=== PATIENT | male | born 2000 | race American Indian/Alaskan Native ===

== ENCOUNTER 2024-01-07 23:31 | Emergency (ER) | payer SELFPAY ==
[2024-01-07 23:32] VITALS: BP 146/97; PULSE 100; RESP 19; TEMP 36.6; O2SAT 100
--- NOTE | 2024-01-08 02:27 | PC.NURSE ---
Patient called again for vitals in triage area. No answer.
== END 2024-01-08 02:47 | disposition left against medical advice (07) ==
DX: H57.12 Ocular pain, left eye (principal)
CPT/HCPCS: 99199

== ENCOUNTER 2024-01-08 10:18 | Emergency (ER) | payer OTHER, SELFPAY ==
[2024-01-08 10:20] VITALS: BP 143/92; PULSE 81; RESP 18; TEMP 36.5; O2SAT 100
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
== END 2024-01-08 12:14 | disposition home or self-care (01) ==
LOC: ANHED 11:47
PROVIDERS: Emergency Provider Nurse Practitioner Family
DX: T54.3X1A Toxic effect of corrosive alkalis and alkali-like substances, accidental (unintentional), initial encounter (principal); T26.62XA Corrosion of cornea and conjunctival sac, left eye, initial encounter; S05.02XA Injury of conjunctiva and corneal abrasion without foreign body, left eye, initial encounter; Y93.G1 Activity, food preparation and clean up
CPT/HCPCS: 99283; A9270